=== PATIENT | male | born 1995 | race African-American/Black ===

== ENCOUNTER 2019-04-14 07:46 | Observation (INO) ==
[2019-04-14] MEDS ORDERED: CEFTAROLINE 600 MG in SODIUM CHLORIDE 0.9% 100 ML IV STA (08:25)
[2019-04-14 08:59] LABS: Basophils % 0.2 % (0.0-0.8); Eosinophils % 0.3 % (0.00-10.9); Hematocrit 41.9 VOL% (42.0-52.0); Hemoglobin 14.3 GM/DL (14.0-18.0); Immature Granulocytes % 0.6 %; Immature Granulocytes Absolute 0.09 #; Lymphocytes # 0.8 10*3/uL (1.4-4.0); Lymphocytes % 5.8 % (21.2-54.2); Mean Corpuscular HGB Conc 34.1 GM/DL (32-36); Mean Corpuscular Volume 86.6 FL (87-102); Mean Platelet Volume 10.1 FL (9.6-12.0); Neutrophils % 83.1 % (38.7-73.9); Platelet Count 210 T/CUMM (130-400); Red Blood Count 4.84 MC/CUMM (3.8-5.5); Red Cell Distribution Width 12.6 % (9.3-17.3); White Blood Count 14.1 T/CUMM (4-12)
[2019-04-14 09:17] LABS: Albumin 3.5 G/DL (3.4-5.0); Bilirubin,Total 1.1 MG/DL (0.2-1.0); Calcium 9.1 MG/DL (8.5-10.1); Total Protein 7.5 G/DL (6.4-8.3)
[2019-04-14] MEDS ORDERED: ONDANSETRON ODT 4 MG TABLET PO ONE (09:26)
[2019-04-14] MEDS ORDERED: ONDANSETRON ODT 4 MG TABLET PO STA (09:28)
[2019-04-14] MEDS ORDERED: ONDANSETRON 4 MG/2 ML VIAL IV PRN (10:37)
[2019-04-14] MEDS ORDERED: ACETAMINOPHEN 325 MG TABLET PO PRN (10:37)
[2019-04-14 11:38] LABS: Sedimentation Rate-Westergren 30 MM/HR (0-15)
[2019-04-14 12:24] LABS: Apearance,Urine CLEAR (Clear); Bilirubin,Urine Negative (Negative); Blood, Urine Negative (Negative); Glucose,Urine (UA) Negative (Negative); Hyaline Casts,Urine 3 /LPF (0-3); Ketones,Urine 20 mg/dL (Negative); Mucus,Urine Few /LPF (Occasional); Nitrite,Urine Negative (Negative); Protein,Urine Negative; RBC,Urine 1 /HPF (0-4); Urine Color Yellow (Yellow); Urine Specific Gravity 1.012 (1.001-1.035); Urine Urobilinogen < 2.0 EU/DL (0.2-1.0); WBC,Urine 2 /HPF (0-6)
[2019-04-14] MEDS ORDERED: NICOTINE 21 MG/24 HR PATCH TRANSDERM SCH (13:30)
[2019-04-14] MEDS ORDERED: VANCOMYCIN INJ 1,250 MG in SODIUM CHLORIDE 0.9% 250 ML IV SCH (16:00)
[2019-04-14 16:04] VITALS: BP 134/76
[2019-04-14] MEDS: POTASSIUM CHLORIDE 20 MEQ TABLET PO PRN ×2 (16:30→18:30)
[2019-04-15] MEDS ORDERED: PANTOPRAZOLE 40 MG TABLET PO SCH (09:00)
== END 2019-04-14 19:46 | disposition left against medical advice (07) ==
LOC: N.ED 07:46 → N.EDINP 07:46 → N.2E 14:35
PROVIDERS: ADMIT Internal Medicine; ATTEND Internal Medicine